=== PATIENT | male | born 1960 | race African-American/Black ===

== ENCOUNTER 2017-04-05 07:07 | Emergency (ER) | payer MEDICAID ==
[~2017-04-05] VITALS: Ht 175.3 cm; Wt 85.0 kg
[~2017-04-05 07:07] MED LIST: ARIP30TA4 PO; HYDR-3307 PO; SERT100T5 PO; TRAZ50TA18 PO
[2017-04-05 07:10] VITALS: BP 145/96
[2017-04-05] MEDS ORDERED: FLUORESCEIN OPHTHALMIC 1 MG STRIP ONE (07:53)
[2017-04-05] MEDS ORDERED: PROPARACAINE OPHTH 0.5%, 15ML ONE (07:53)
== END 2017-04-05 09:52 | disposition home or self-care (01) ==
LOC: ED 07:33
DX: H57.12 Ocular pain, left eye (principal); H27.112 Subluxation of lens, left eye; F17.210 Nicotine dependence, cigarettes, uncomplicated
CPT/HCPCS: 70480; 70486; 99284

== ENCOUNTER 2017-04-16 22:47 | Emergency (ER) | payer MEDICAID ==
[~2017-04-16] VITALS: Ht 175.3 cm; Wt 82.5 kg
[2017-04-16] MEDS ORDERED: methylPREDNISolone SOD SUCC 125 MG/2 ML ONE (23:21)
[2017-04-16] MEDS ORDERED: methylPREDNISolone SOD SUCC 125 MG/2 ML IVP ONE (23:30)
[2017-04-16] MEDS ORDERED: SODIUM CHLORIDE 0.9% 1,000ML IVBOLUS ONE (23:30)
[2017-04-16] MEDS ORDERED: SODIUM CHLORIDE FLUSH 10ML SYR IVF ONE (23:30)
[2017-04-16 23:37] LABS: BASOPHILS # (AUTO) 0.04 x10^3/uL (0-0.1); BASOPHILS % (AUTO) 1 % (0-1); EOSINOPHILS # (AUTO) 0.35 x10^3/uL (0-0.4); EOSINOPHILS % (AUTO) 5 % (1-7); LYMPHOCYTES # (AUTO) 2.28 x10^3/uL (1-3.4); LYMPHOCYTES % (AUTO) 31 % (22-44); MD NO; MEAN CORPUSCULAR HEMOGLOBIN 30.6 pg (27.5-34.5); MEAN CORPUSCULAR HGB CONC 33.8 g/dL (33.2-36.2); MEAN CORPUSCULAR VOLUME 90.7 fL (81-97); MEAN PLATELET VOLUME 8.3 fL (7.4-10.4); MONOCYTES # (AUTO) 0.78 x10^3/uL (0.2-0.8); MONOCYTES % (AUTO) 11 % (2-9); NEUTROPHILS # (AUTO) 3.94 x10^3/uL (1.8-6.8); NEUTROPHILS % (AUTO) 53 % (42-75); PLATELET COUNT 212 x10^3/uL (130-400); RED BLOOD COUNT 4.44 x10^6/uL (4.38-5.82)
[2017-04-16 23:50] LABS: ALBUMIN 2.9 g/dL (3.4-5.0); ANION GAP 8 mmol/L (5-15); CALCIUM 8.6 mg/dL (8.5-10.1); CHLORIDE 106 mmol/L (98-107); CREATININE 1.02 mg/dL (0.7-1.3)
[2017-04-17 00:46] VITALS: BP 147/78
== END 2017-04-17 00:50 | disposition home or self-care (01) ==
LOC: ED 23:07
DX: J20.9 Acute bronchitis, unspecified (principal); J44.0 Chronic obstructive pulmonary disease with (acute) lower respiratory infection; Z98.890 Other specified postprocedural states
CPT/HCPCS: 36415; 71046; 80048; 82040; 85025; 93005; 96361; 96374; 99285; J2930; J7030

== ENCOUNTER → 2017-11-21 | Outpatient (CLI) | payer MEDICAID ==
[~2017-11-21] MED LIST changes: +TRAZ-136 PO; -TRAZ50TA18 PO
== END | disposition home or self-care (01) ==
LOC: CFH 15:40
PROVIDERS: ATTEND Physical Medicine & Rehabilitation Pain Medicine
DX: M47.897 Other spondylosis, lumbosacral region (principal); M48.07 Spinal stenosis, lumbosacral region; M79.605 Pain in left leg; M79.604 Pain in right leg
CPT/HCPCS: 72148

== ENCOUNTER 2018-06-24 07:15 | Emergency (ER) | payer MEDICAID ==
[~2018-06-24] VITALS: Ht 175.3 cm; Wt 90.5 kg
[~2018-06-24 07:15] MED LIST changes: +SERT100T32 PO; -SERT100T5 PO; -TRAZ-136 PO; +TRAZ50TA66 PO
[2018-06-24 07:16] VITALS: BP 143/86
--- NOTE | 2018-06-24 07:54 | NUR ---
REVIEWED STUDENT CLINICAL AND PHYSICAL ASSESSMENT
--- NOTE | 2018-06-24 08:10 | NUR ---
PT CAME INTO ED STATING "I JUST WANT TO MAKE SURE I DON'T HAVE PNEUMONIA AGAIN LAST TIME I HAD IT I WAS IN THE HOSPITAL FOR 21 DAYS. I HAVE HAD A COUGH FOR A COUPLE WEEKS BUT MY CHEST STARTED TO HURT TWO DAYS AGO" DIVERSIFIED CROPS II FARMWORKER, PULSE OX AND NIBP IN USE.
--- NOTE | 2018-06-24 08:36 | NUR ---
Patient/Caregiver given discharge instructions and they have confirmed that they understand the instructions. Patient ambulatory with steady gait.
== END 2018-06-24 08:55 | disposition home or self-care (01) ==
LOC: ED 08:37
DX: J20.8 Acute bronchitis due to other specified organisms (principal); F17.200 Nicotine dependence, unspecified, uncomplicated; I10 Essential (primary) hypertension
CPT/HCPCS: 71046; 93005; 99283

== ENCOUNTER 2018-08-12 06:48 | Emergency (ER) | payer MEDICAID ==
[~2018-08-12] VITALS: Ht 175.3 cm; Wt 86.0 kg
--- NOTE | 2018-08-12 06:50 | NUR ---
CALLED FOR TRIAGE, PT TO BR.
[2018-08-12 07:05] VITALS: BP 134/85
--- NOTE | 2018-08-12 07:09 | NUR ---
PT RESTING COMFORTABLE ACCOMPANIED BY . PT HAS CO OF CHEST ON LEFT SIDE THAT RADIATES FROM THE BACK TO CHEST THAT HAS BEEN GOING ON FOR 2 WEEKS. PA AT BEDSIDE
[2018-08-12] MEDS ORDERED: GABA300C10 PO (07:14)
[2018-08-12] MEDS ORDERED: TAMS-11 PO (07:14)
[2018-08-12] MEDS ORDERED: AMLO10TA8 PO (07:14)
[2018-08-12] MEDS ORDERED: ASPIRIN 81 MG TABLET EC ONE (07:28)
[2018-08-12] MEDS ORDERED: METHOCARBAMOL 750 MG TABLET ONE ×2 (07:29→07:37)
[2018-08-12] MEDS ORDERED: IBUPROFEN 200 MG TABLET ONE ×2 (07:29→07:37)
[2018-08-12] MEDS ORDERED: ASPIRIN 81 MG TABLET CHEW PO ONE (07:30)
[2018-08-12] MEDS: METHOCARBAMOL 750 MG TABLET PO ONE ×2 (07:30→07:38)
[2018-08-12] MEDS: IBUPROFEN 200 MG TABLET PO ONE ×2 (07:31→07:38)
[2018-08-12] MEDS ORDERED: ASPIRIN 81 MG TABLET CHEW ONE (07:32)
[2018-08-12 07:35] LABS: BASOPHILS # (AUTO) 0.04 x10^3/uL (0-0.1); BASOPHILS % (AUTO) 1 % (0-1); EOSINOPHILS # (AUTO) 0.22 x10^3/uL (0-0.4); EOSINOPHILS % (AUTO) 6 % (1-7); LYMPHOCYTES # (AUTO) 1.99 x10^3/uL (1-3.4); LYMPHOCYTES % (AUTO) 49 % (22-44); MD NO; MEAN CORPUSCULAR HEMOGLOBIN 31.3 pg (27.5-34.5); MEAN CORPUSCULAR HGB CONC 33.2 g/dL (33.2-36.2); MEAN CORPUSCULAR VOLUME 94.3 fL (81-97); MEAN PLATELET VOLUME 8.6 fL (7.4-10.4); MONOCYTES # (AUTO) 0.35 x10^3/uL (0.2-0.8); MONOCYTES % (AUTO) 9 % (2-9); NEUTROPHILS # (AUTO) 1.45 x10^3/uL (1.8-6.8); NEUTROPHILS % (AUTO) 36 % (42-75); PLATELET COUNT 190 x10^3/uL (130-400); RED BLOOD COUNT 5.05 x10^6/uL (4.38-5.82); RED CELL DISTRIBUTION WIDTH 14.3 % (9.4-14.8)
[2018-08-12 08:24] LABS: ALBUMIN 3.5 g/dL (3.4-5.0); ANION GAP 6 mmol/L (5-15); CALCIUM 9.1 mg/dL (8.5-10.1); CHLORIDE 107 mmol/L (98-107); CREATININE 1.31 mg/dL (0.7-1.3)
[2018-08-12 08:28] LABS: TROPONIN I < 0.015 ng/mL (0.000-0.045)
--- NOTE | 2018-08-12 09:00 | NUR ---
PT DC HOME W INSTRUCTIONS AND ALL BELONGINGS.
== END 2018-08-12 09:31 | disposition home or self-care (01) ==
LOC: ED 09:12
DX: R07.89 Other chest pain (principal); I10 Essential (primary) hypertension
CPT/HCPCS: 36415; 71046; 80048; 82040; 83880; 84484; 85025; 93005; 99284

== ENCOUNTER 2019-12-31 17:39 | Emergency (ER) | payer MEDICAID ==
[~2019-12-31] VITALS: Ht 175.3 cm; Wt 89.0 kg
[~2019-12-31 17:39] MED LIST changes: +AMLO-211 PO; +GABA300C10 PO; +HYDR-3246 PO; -HYDR-3307 PO; +TAMS-11 PO
[2019-12-31 17:50] VITALS: BP 125/88
--- NOTE | 2019-12-31 19:30 | NUR ---
NIL X 1
--- NOTE | 2019-12-31 19:39 | NUR ---
NIL X 2
--- NOTE | 2019-12-31 19:58 | NUR ---
NIL X 3
== END 2019-12-31 20:00 | disposition left against medical advice (07) ==
LOC: ED 19:45
DX: R21 Rash and other nonspecific skin eruption (principal); L53.9 Erythematous condition, unspecified
CPT/HCPCS: 99281

== ENCOUNTER 2020-01-01 04:42 | Emergency (ER) | payer MEDICAID ==
[~2020-01-01] VITALS: Ht 175.3 cm; Wt 88.5 kg
[2020-01-01 04:47] VITALS: BP 129/91
--- NOTE | 2020-01-01 05:04 | NUR ---
PT STATES HAVING LESIONS ALL OVER BODY ON LET NEE, RIGHT SHOULDER AND BACK. PT STATES HAVING KNEE REPLACEENT IN LEFT KNEE WELL. PT PLACED IN GOWN AND IN GURNEY, AWAITING ERP EVAL.
[2020-01-01] MEDS ORDERED: PERMETHRIN CRM 5%, 60GM ONE (05:50)
--- NOTE | 2020-01-01 05:52 | NUR ---
PT GIVEN ELIMITE CREAM, PT IS PUTTING IT ON RIGHT NOW AND IS UNDERSTANDING TO WASH IT OFF AFTER 12 HOURS. PT UNDERSTANDING OF D/C INSTRUCTIONS, PT STEADY AMBULATING
[2020-01-01] MEDS ORDERED: PERMETHRIN CRM 5%, 60GM TP ONE (06:00)
== END 2020-01-01 06:04 | disposition home or self-care (01) ==
LOC: ED 05:37
DX: T14.8XXA Other injury of unspecified body region, initial encounter (principal); R21 Rash and other nonspecific skin eruption; I10 Essential (primary) hypertension; W57.XXXA Bitten or stung by nonvenomous insect and other nonvenomous arthropods, initial encounter; Y93.89 Activity, other specified; Y92.89 Other specified places as the place of occurrence of the external cause; Y99.8 Other external cause status
CPT/HCPCS: 99283

== ENCOUNTER 2020-02-17 23:26 | Emergency (ER) | payer MEDICAID ==
[~2020-02-17] VITALS: Ht 175.3 cm; Wt 86.0 kg
[2020-02-17 23:29] VITALS: BP 170/107
[2020-02-18] MEDS ORDERED: AMLODIPINE 5 MG TABLET PO ONE
[2020-02-18] MEDS ORDERED: DEXAMETHASONE 4 MG TABLET PO ONE
[2020-02-18] MEDS ORDERED: hydrOXyzine 50MG TABLET PO ONE
[2020-02-18] MEDS ORDERED: hydrOXyzine 50MG TABLET ONE (00:06)
[2020-02-18] MEDS ORDERED: DEXAMETHASONE 4 MG TABLET ONE (00:06)
[2020-02-18] MEDS ORDERED: AMLODIPINE 5 MG TABLET ONE (00:07)
== END 2020-02-18 00:15 | disposition home or self-care (01) ==
LOC: ED 23:44
DX: S20.369A Insect bite (nonvenomous) of unspecified front wall of thorax, initial encounter (principal); L29.9 Pruritus, unspecified; I10 Essential (primary) hypertension; F17.200 Nicotine dependence, unspecified, uncomplicated; X58.XXXA Exposure to other specified factors, initial encounter; Y93.89 Activity, other specified; Y92.89 Other specified places as the place of occurrence of the external cause; Y99.8 Other external cause status
CPT/HCPCS: 99284; Q0177

== ENCOUNTER 2020-03-15 19:34 | Emergency (ER) | payer MEDICAID ==
[~2020-03-15] VITALS: Ht 182.9 cm; Wt 89.0 kg
[~2020-03-15 19:34] MED LIST changes: -HYDR-3246 PO; +HYDR-3248 PO
--- NOTE | 2020-03-15 19:35 | NUR ---
PT BIB AMBULANCE TONIGHT AFTER BEING FOUND PASSED OUT AT [facility]. PT WAS REPORTEDLY DRINKING ETOH OF UNKNOWN TYPE AND AMOUNT. WITNESSES CALLED 911 WHEN CONCERNED THAT THE PT WAS "UNCONSCIOUS". UPON ARRIVAL TO [facility] ED, PT IS DROWSY BUT AROUSES TO PAIN AND CONVERSES WITH INCOMPREHENSIBLE SOUNDS. PT ATTACHED TO ALL VS MONITORS. VSS AT THIS TIME. PIV ACCESS ESTABLISHED BY EMS AND IV FLUIDS RUNNING AT THIS TIME. PT HAS CALL LIGHT WITHIN REACH. AWAITING ERP AT THIS TIME.
--- NOTE | 2020-03-15 21:51 | NUR ---
Report received from KENNY Marti. This RN to assume care. Patient sleeping in [facility]. Respirations even and unlabored.
--- NOTE | 2020-03-15 23:00 | NUR ---
Patient sleeping in gurney. Respirations even and unlabored.
--- NOTE | 2020-03-16 00:40 | NUR ---
Patient sleeping in gurney. Respirations even and unlabored.
--- NOTE | 2020-03-16 01:10 | NUR ---
PATIENT RESTING IN BED, NO NOTED ACUTE DISTRESS. PATIENT TOLERATING INTERVENTIONS WELL. VITAL SIGNS STABLE. WILL CONTINUE TO MONITOR.
[2020-03-16 02:16] VITALS: BP 137/96
--- NOTE | 2020-03-16 02:17 | NUR ---
PATIENT CLEARED FOR DISCHARGE. NO NOTED ACUTE DISTRESS. PATIENT TOLERATED INTERVENTIONS WELL. PATIENT VERBALIZED UNDERSTANDING OF SELF CARE AND FOLLOW UP CARE. PATIENT GIVEN TAXI VOUCHER. ABLE TO AMBULATE WITHOUT COMPLICATIONS TO DISCHARGE, PATIENT ABLE TO ANSWER ORIENTATION QUESTIONS, ABLE TO DO SERIAL ADDITION.
== END 2020-03-16 02:18 | disposition home or self-care (01) ==
LOC: ED 03-16 01:53 → EDBD 03-16 01:53 → MERGE 03-16 01:53 → ED 03-16 02:18
DX: F10.220 Alcohol dependence with intoxication, uncomplicated (principal); I10 Essential (primary) hypertension; F17.210 Nicotine dependence, cigarettes, uncomplicated; Z72.9 Problem related to lifestyle, unspecified; Y90.9 Presence of alcohol in blood, level not specified
CPT/HCPCS: 99283; 99406

== ENCOUNTER 2020-03-23 08:45 | Emergency (ER) | payer MEDICAID ==
[~2020-03-23] VITALS: Ht 175.3 cm; Wt 77.1 kg
--- NOTE | 2020-03-23 08:59 | NUR ---
TASK RN: PT BIB [facility] FROM [facility] TODAY FOR MULTIPLE JOINT PAIN AND SOME SWELLING TO RT HAND AND RT FOOT. PT DENIES TRAUMA. GRADUALLY WORSENING PAIN OVER SEVERAL DAYS. NAD NOTED AT THIS TIME. PT TENDER WITH MOVEMENT OF ARMS AND KNEES. NO WOB NOTED. PT REPORTS CHRONIC COUGH WITH TOBACCO USE. VSS. SIDE RAIL UP, CALL LIGHT IN REACH.
--- NOTE | 2020-03-23 09:40 | NUR ---
TASK RN NOTE: ERMD IN WITH MEDICAL STUDENT TO EVALUATE PT.
[2020-03-23] MEDS ORDERED: KETOROLAC 30 MG/1 ML IM ONE (10:00)
[2020-03-23] MEDS ORDERED: KETOROLAC 30 MG/1 ML ONE (10:05)
--- NOTE | 2020-03-23 10:17 | NUR ---
Pt medicated for discomfort in joints. Lab at bedside for draw. VS updated. Call light within reach. Updated on POC.
[2020-03-23 10:20] LABS: BASOPHILS % (AUTO) 1 % (0-1); EOSINOPHILS % (AUTO) 2 % (1-7); LYMPHOCYTES % (AUTO) 18 % (22-44); MEAN CORPUSCULAR HEMOGLOBIN 31.9 pg (27.5-34.5); MEAN CORPUSCULAR HGB CONC 34.6 g/dL (33.2-36.2); MEAN PLATELET VOLUME 8.5 fL (7.4-10.4); MONOCYTES % (AUTO) 10 % (2-9); NEUTROPHILS % (AUTO) 71 % (42-75); PLATELET COUNT 149 x10^3/uL (130-400); RED BLOOD COUNT 3.83 x10^6/uL (4.38-5.82); RED CELL DISTRIBUTION WIDTH 14.9 % (9.4-14.8)
[2020-03-23 10:25] LABS: ALANINE AMINOTRANSFERASE 44 U/L (12-78); ALBUMIN 2.5 g/dL (3.4-5.0); ANION GAP 6 mmol/L (5-15); CALCIUM 8.6 mg/dL (8.5-10.1); CHLORIDE 104 mmol/L (98-107); CREATININE 1.06 mg/dL (0.7-1.3)
[2020-03-23 10:27] LABS: ALKALINE PHOSPHATASE 90 U/L (45-117); TOTAL PROTEIN 7.3 g/dL (6.4-8.2)
[2020-03-23 10:33] LABS: MD NO
--- NOTE | 2020-03-23 11:05 | NUR ---
Report from KENNY Slater. [facility] care.
--- NOTE | 2020-03-23 11:23 | NUR ---
RN at bedside. Pt denies needs at this time.
--- NOTE | 2020-03-23 11:24 | NUR ---
Pt reports they feel like the Toradol helped "a little with the pain, and made the swelling go down"
--- NOTE | 2020-03-23 12:22 | NUR ---
UA was collected earlier and sent to lab by [facility]. Calling lab to ask if they have it and where the results are, lab reports they do not have a UA. This RN collected and sent new UA to lab.
[2020-03-23 12:40] LABS: MICROSCOPIC INDICATED
[2020-03-23 13:13] VITALS: BP 138/91
--- NOTE | 2020-03-23 13:45 | NUR ---
Provided pt taxi voucher. Pt agrees with and understands discharge plan and instructions.
== END 2020-03-23 13:46 | disposition home or self-care (01) ==
LOC: ED 09:02
DX: M13.0 Polyarthritis, unspecified (principal); R35.0 Frequency of micturition; I11.9 Hypertensive heart disease without heart failure; I49.3 Ventricular premature depolarization; F17.200 Nicotine dependence, unspecified, uncomplicated
CPT/HCPCS: 36415; 80053; 81001; 84550; 85025; 87086; 87491; 87591; 93005; 96372; 99284; J1885

== ENCOUNTER 2020-03-31 07:55 | Emergency (ER) | payer MEDICAID ==
[~2020-03-31] VITALS: Ht 175.3 cm; Wt 80.0 kg
[2020-03-31 07:56] VITALS: BP 115/80
--- NOTE | 2020-03-31 07:56 | NUR ---
PT BIBA FROM HOME. C/O RIGHT SIDED PAIN IN LE & UE. PT STATED WAS SEEN LAST WEEK FOR HX OF GOUT & SCIATICA. GIVEN 500MG TYLENOL & 600MG IBPROFEN IS MANAGER. PT CHANGED INTO GOWN, RESPONDS APPROPRIATLEY TO STAFF. MONITORS IN PLACE. NAD/VSS. CALL LIGHT WITHIN REACH. NO NEEDS AT THIS TIME.
[2020-03-31] MEDS ORDERED: KETOROLAC 30 MG/1 ML ONE (08:26)
[2020-03-31] MEDS ORDERED: OXYcodone/APAP 5/325MG TABLET ONE (08:27)
[2020-03-31] MEDS ORDERED: KETOROLAC 30 MG/1 ML IM ONE (08:30)
[2020-03-31] MEDS ORDERED: OXYcodone/APAP 5/325MG TABLET PO ONE (08:30)
--- NOTE | 2020-03-31 09:24 | NUR ---
PT CALMLY LAYING ON GURNEY, NO COMPLAINTS OF PAIN, RESPONDS APPROPRIATLEY TO STAFF. MONITORS IN PLACE. CALL LIGHT WITHIN REACH. NO NEEDS AT THIS TIME.
--- NOTE | 2020-03-31 09:34 | NUR ---
Patient given discharge instructions and they have confirmed that they understand the instructions. Patient TO DC DESK VIA WHEELCHAIR BECUSE PT REFUSED TO AMBULATE. ERP AWARE.
== END 2020-03-31 09:36 | disposition home or self-care (01) ==
LOC: ED 08:01
DX: M10.071 Idiopathic gout, right ankle and foot (principal); M10.061 Idiopathic gout, right knee; M10.031 Idiopathic gout, right wrist; M10.011 Idiopathic gout, right shoulder; I10 Essential (primary) hypertension
CPT/HCPCS: 96372; 99283; J1885

== ENCOUNTER 2020-08-24 09:59 | Emergency (ER) | payer MEDICAID ==
[~2020-08-24] VITALS: Ht 175.3 cm; Wt 82.0 kg
--- NOTE | 2020-08-24 10:02 | NUR ---
Report received from EMS and care assumed. Pt states dizziness has resolved. geoscience laboratory technician getting 12 lead now and pt placed on bedside monitor. Call light in reach.
--- NOTE | 2020-08-24 10:05 | NUR ---
assessment nurse practitioner completed.
[2020-08-24 10:15] VITALS: BP 139/104
--- NOTE | 2020-08-24 10:15 | NUR ---
PA at bedside for exam.
[2020-08-24] MEDS ORDERED: FLUORESCEIN OPHTHALMIC 1 MG STRIP ONE (10:40)
--- NOTE | 2020-08-24 12:21 | NUR ---
ASSUMED CARE OF PT FROM KENNY NOLASCO. PT RESTING IN YUSEF VIEYRA AT THIS TIME, KANIKA.
--- NOTE | 2020-08-24 12:23 | NUR ---
Report given to KENNY Guy and care transferred. RN aware pt has not had hourly rounding and is awaiting call back from opthamology.
[2020-08-24] MEDS ORDERED: CIPROFLOXACIN 500 MG TABLET PO ONE (13:00)
[2020-08-24] MEDS ORDERED: MOXIFLOXACIN OPHTH O.5%, 3ML LEFTEYE ONE (13:01)
--- NOTE | 2020-08-24 13:27 | NUR ---
PT EDUCATED ON IMPORTANCE OF STAYING FOR MEDICATION ADMINISTRATION, PT STATES "I AM LEAVING, I DON'T CARE I WILL PICK THEM UP FROM THE EYE DOCTOR TOMORROW". PT REFUSING TO SIGN AMA PAPERWORK. DR. SOLORIO AWARE. PT AMBULATED STEADILY OUT OF LOBBY.
== END 2020-08-24 13:30 | disposition left against medical advice (07) ==
LOC: ED 10:21
DX: H16.042 Marginal corneal ulcer, left eye (principal); H57.12 Ocular pain, left eye; H40.9 Unspecified glaucoma; R42 Dizziness and giddiness; I10 Essential (primary) hypertension
CPT/HCPCS: 93005; 99283

== ENCOUNTER 2020-08-30 12:49 | Inpatient (IN) | payer MEDICAID ==
[~2020-08-30] VITALS: Ht 175.3 cm; Wt 75.2 kg
[2020-08-30] MEDS ORDERED: FLUORESCEIN OPHTHALMIC 1 MG STRIP ONE (12:54)
[2020-08-30] MEDS ORDERED: PROPARACAINE OPHTH 0.5%, 15ML ONE (12:54)
--- NOTE | 2020-08-30 12:59 | NUR ---
PT CAME IN LEFT EYE REDNESS SWELLING AND PAIN X 1 WEEK. PT STATES HE CANNOT SEE OUT OF HIS LEFT EYE. HX OF GLAUCOMA AND DETATCHED RETNA
[2020-08-30] MEDS ORDERED: SODIUM CHLORIDE FLUSH 10ML SYR IVF PRN (14:00)
[2020-08-30] MEDS ORDERED: SODIUM CHLORIDE FLUSH 10ML SYR IVF ONE (14:00)
[2020-08-30] MEDS ORDERED: CIPROFLOXACIN 500 MG TABLET PO ONE (14:00)
[2020-08-30 14:09] LABS: BASOPHILS % (AUTO) 1 % (0-1); EOSINOPHILS % (AUTO) 1 % (1-7); LYMPHOCYTES % (AUTO) 37 % (22-44); MEAN CORPUSCULAR HEMOGLOBIN 32.9 pg (27.5-34.5); MEAN CORPUSCULAR HGB CONC 35.2 g/dL (33.2-36.2); MEAN PLATELET VOLUME 8.4 fL (7.4-10.4); MONOCYTES % (AUTO) 8 % (2-9); NEUTROPHILS % (AUTO) 53 % (42-75); PLATELET COUNT 207 x10^3/uL (130-400); RED BLOOD COUNT 4.36 x10^6/uL (4.38-5.82); RED CELL DISTRIBUTION WIDTH 14.3 % (9.4-14.8)
[2020-08-30 14:20] LABS: ALANINE AMINOTRANSFERASE 122 U/L (12-78); ALBUMIN 3.4 g/dL (3.4-5.0); ANION GAP 9 mmol/L (5-15); CHLORIDE 101 mmol/L (98-107); CREATININE 0.99 mg/dL (0.7-1.3)
[2020-08-30 14:23] LABS: ALKALINE PHOSPHATASE 92 U/L (45-117); BILIRUBIN,TOTAL 1.4 mg/dL (0.2-1.0); TOTAL PROTEIN 9.2 g/dL (6.4-8.2)
--- NOTE | 2020-08-30 14:28 | NUR ---
VERBAL SBAR WAS EXCHANGED W DAVINA WALTERS) O THE FLOOR FOR ADMISSION. WE WILL BEGIN TO PREPARE FOR TRANSPORT AT THIS TIME.
[2020-08-30] MEDS ORDERED: CIPROFLOXACIN 500 MG TABLET ONE (14:30)
[2020-08-30] MEDS ORDERED: BISACODYL 10 MG SUPP PR PRN (14:30)
[2020-08-30] MEDS ORDERED: POLYETHYLENE GLYCOL 17 GM PACKET PO PRN (14:30)
[2020-08-30] MEDS ORDERED: LABETALOL 5MG/ML, 20ML IVPush PRN (14:30)
[2020-08-30] MEDS ORDERED: ONDANSETRON 2MG/ML, 2ML IVPush PRN (14:30)
[2020-08-30] MEDS: MOXIFLOXACIN OPHTH O.5%, 3ML LEFTEYE SCH ×20 (14:36→23:38)
[2020-08-30] MEDS ORDERED: SODIUM CHLORIDE 0.9% 1,000 ML IV SCH (15:00)
[2020-08-30] MEDS ORDERED: KETOROLAC 30 MG/1 ML ONE ×2 (15:11→21:37)
[2020-08-30] MEDS: KETOROLAC 15 MG/1ML IVPush SCH ×2 (15:15→20:30)
[2020-08-30] MEDS: GABAPENTIN 100 MG CAPSULE PO SCH ×2 (15:15→21:50)
[2020-08-30] MEDS: ENOXAPARIN 40 MG/0.4 ML SQ SCH (15:15)
[2020-08-30] MEDS ORDERED: NICOTINE 14MG/24 HR PATCH.TD24 TD ONE (15:30)
[2020-08-30 21:41] VITALS: BP 162/89
[2020-08-30] MEDS: TIMOLOL OPHTH 0.25%, 5ML OP SCH (21:50)
[2020-08-30] MEDS: CIPROFLOXACIN 500 MG TABLET PO SCH (21:50)
[2020-08-30] MEDS: DORZOLAMIDE OPHTH 2%, 10ML RIGHTEYE SCH (21:50)
[2020-08-30] MEDS ORDERED: LORazepam 2 MG/ML, 1ML IVPush PRN (23:00)
[2020-08-30] MEDS ORDERED: CHLORDIAZEPOXIDE 5 MG CAPSULE PO PRN (23:00)
[2020-08-30] MEDS ORDERED: CHLORDIAZEPOXIDE 25 MG CAPSULE PO PRN (23:00)
[2020-08-30] MEDS: THIAMINE 100MG TABLET PO SCH (23:12)
[2020-08-31] MEDS: MOXIFLOXACIN OPHTH O.5%, 3ML LEFTEYE SCH ×34 (00:13→21:15)
[2020-08-31 01:37] VITALS: BP 150/87
[2020-08-31] MEDS ORDERED: KETOROLAC 30 MG/1 ML ONE ×4 (02:28→21:15)
[2020-08-31] MEDS: KETOROLAC 15 MG/1ML IVPush SCH ×4 (02:29→20:30)
[2020-08-31 05:05] LABS: BASOPHILS % (AUTO) 0 % (0-1); EOSINOPHILS % (AUTO) 1 % (1-7); LYMPHOCYTES % (AUTO) 39 % (22-44); MEAN CORPUSCULAR HEMOGLOBIN 32.7 pg (27.5-34.5); MEAN CORPUSCULAR HGB CONC 34.8 g/dL (33.2-36.2); MONOCYTES % (AUTO) 8 % (2-9); NEUTROPHILS % (AUTO) 52 % (42-75); PLATELET COUNT 155 x10^3/uL (130-400); RED BLOOD COUNT 4.12 x10^6/uL (4.38-5.82); RED CELL DISTRIBUTION WIDTH 13.8 % (9.4-14.8)
[2020-08-31 05:09] LABS: CHLORIDE 101 mmol/L (98-107)
[2020-08-31 05:18] LABS: ALANINE AMINOTRANSFERASE 106 U/L (12-78); ALBUMIN 2.8 g/dL (3.4-5.0); ALKALINE PHOSPHATASE 101 U/L (45-117); ANION GAP 6 mmol/L (5-15); BILIRUBIN,TOTAL 1.6 mg/dL (0.2-1.0); CALCIUM 8.7 mg/dL (8.5-10.1); CREATININE 0.89 mg/dL (0.7-1.3); TOTAL PROTEIN 7.8 g/dL (6.4-8.2)
[2020-08-31 06:45] VITALS: BP 157/97
[2020-08-31] MEDS: FOLIC ACID 1 MG TABLET PO SCH (08:00)
[2020-08-31] MEDS: CIPROFLOXACIN 500 MG TABLET PO SCH ×2 (08:00→21:21)
[2020-08-31] MEDS: HYDROcodone/APAP 5/325 TABLET PO PRN ×3 (08:00→20:33)
[2020-08-31] MEDS: GABAPENTIN 100 MG CAPSULE PO SCH ×3 (08:01→21:21)
[2020-08-31] MEDS: AMLODIPINE 10 MG TAB PO SCH (08:01)
[2020-08-31] MEDS: THIAMINE 100MG TABLET PO SCH ×2 (08:01→21:21)
[2020-08-31] MEDS: SENNA/DOCUSATE TABLET PO SCH (08:01)
[2020-08-31] MEDS: MULTIVITAMINS/MINERALS TABLET PO SCH (08:01)
[2020-08-31] MEDS: TIMOLOL OPHTH 0.25%, 5ML OP SCH ×2 (08:05→21:22)
[2020-08-31] MEDS: DORZOLAMIDE OPHTH 2%, 10ML RIGHTEYE SCH ×2 (10:02→21:22)
[2020-08-31] MEDS: ENOXAPARIN 40 MG/0.4 ML SQ SCH (14:54)
[2020-08-31 15:23] VITALS: BP 143/92
[2020-08-31 19:53] VITALS: BP 127/90
[2020-09-01 01:30] VITALS: BP 130/85
[2020-09-01] MEDS ORDERED: KETOROLAC 30 MG/1 ML ONE (02:26)
[2020-09-01] MEDS: KETOROLAC 15 MG/1ML IVPush SCH (02:29)
[2020-09-01 07:04] VITALS: BP 148/98
[2020-09-01] MEDS: MULTIVITAMINS/MINERALS TABLET PO SCH (08:02)
[2020-09-01] MEDS: THIAMINE 100MG TABLET PO SCH ×2 (08:02→21:08)
[2020-09-01] MEDS: GABAPENTIN 100 MG CAPSULE PO SCH ×3 (08:02→21:08)
[2020-09-01] MEDS: SENNA/DOCUSATE TABLET PO SCH (08:02)
[2020-09-01] MEDS: DORZOLAMIDE OPHTH 2%, 10ML RIGHTEYE SCH ×2 (08:02→21:09)
[2020-09-01] MEDS: TIMOLOL OPHTH 0.25%, 5ML OP SCH ×2 (08:02→21:09)
[2020-09-01] MEDS: AMLODIPINE 10 MG TAB PO SCH (08:02)
[2020-09-01] MEDS: CIPROFLOXACIN 500 MG TABLET PO SCH ×2 (08:02→21:08)
[2020-09-01] MEDS: FOLIC ACID 1 MG TABLET PO SCH (08:02)
[2020-09-01 09:25] LABS: ALANINE AMINOTRANSFERASE 121 U/L (12-78); ALBUMIN 2.8 g/dL (3.4-5.0); ANION GAP 7 mmol/L (5-15); CALCIUM 9.1 mg/dL (8.5-10.1); CHLORIDE 113 mmol/L (98-107); CREATININE 0.99 mg/dL (0.7-1.3)
[2020-09-01 09:27] LABS: ALKALINE PHOSPHATASE 92 U/L (45-117); BILIRUBIN,TOTAL 1.5 mg/dL (0.2-1.0); TOTAL PROTEIN 7.8 g/dL (6.4-8.2)
[2020-09-01] MEDS: KETOROLAC 30 MG/1 ML IVPush SCH ×3 (10:23→22:13)
[2020-09-01 13:26] VITALS: BP 110/73
[2020-09-01] MEDS: ENOXAPARIN 40 MG/0.4 ML SQ SCH (16:08)
[2020-09-01] MEDS: MOXIFLOXACIN OPHTH O.5%, 3ML LEFTEYE SCH ×3 (18:00→22:00)
[2020-09-01 19:07] VITALS: BP 143/86
[2020-09-01] MEDS ORDERED: OXYcodone IR 5MG TABLET PO PRN (20:30)
[2020-09-01] MEDS: AMPICILLIN/SULBACTAM 3 GM in SODIUM CHLORIDE 0.9% 100 ML IV SCH (21:08)
[2020-09-01] MEDS: TOBRAMYCIN OPHTH OINT 3.5 GM LEFTEYE SCH (22:13)
[2020-09-02 00:55] VITALS: BP 134/88
[2020-09-02] MEDS: AMPICILLIN/SULBACTAM 3 GM in SODIUM CHLORIDE 0.9% 100 ML IV SCH ×4 (02:56→20:56)
[2020-09-02] MEDS: KETOROLAC 30 MG/1 ML IVPush SCH ×4 (03:54→22:14)
[2020-09-02 04:49] LABS: BASOPHILS % (AUTO) 1 % (0-1); EOSINOPHILS % (AUTO) 5 % (1-7); LYMPHOCYTES % (AUTO) 31 % (22-44); MEAN CORPUSCULAR HGB CONC 34.8 g/dL (33.2-36.2); MEAN PLATELET VOLUME 8.8 fL (7.4-10.4); MONOCYTES % (AUTO) 9 % (2-9); NEUTROPHILS % (AUTO) 55 % (42-75); PLATELET COUNT 138 x10^3/uL (130-400); RED BLOOD COUNT 4.42 x10^6/uL (4.38-5.82); RED CELL DISTRIBUTION WIDTH 13.8 % (9.4-14.8)
[2020-09-02 05:00] LABS: CHLORIDE 102 mmol/L (98-107)
[2020-09-02 05:07] LABS: ALANINE AMINOTRANSFERASE 118 U/L (12-78); ALBUMIN 2.7 g/dL (3.4-5.0); ALKALINE PHOSPHATASE 97 U/L (45-117); ANION GAP 6 mmol/L (5-15); CALCIUM 8.8 mg/dL (8.5-10.1); CREATININE 1.02 mg/dL (0.7-1.3); TOTAL PROTEIN 7.5 g/dL (6.4-8.2)
[2020-09-02 06:45] VITALS: BP 145/87
[2020-09-02] MEDS: MOXIFLOXACIN OPHTH O.5%, 3ML LEFTEYE SCH ×8 (08:14→22:00)
[2020-09-02] MEDS: GABAPENTIN 100 MG CAPSULE PO SCH ×3 (08:16→20:56)
[2020-09-02] MEDS: THIAMINE 100MG TABLET PO SCH ×2 (08:16→20:56)
[2020-09-02] MEDS: MULTIVITAMINS/MINERALS TABLET PO SCH (08:16)
[2020-09-02] MEDS: SENNA/DOCUSATE TABLET PO SCH (08:16)
[2020-09-02] MEDS: CIPROFLOXACIN 500 MG TABLET PO SCH ×2 (08:16→20:57)
[2020-09-02] MEDS: FOLIC ACID 1 MG TABLET PO SCH (08:16)
[2020-09-02] MEDS: AMLODIPINE 10 MG TAB PO SCH (08:16)
[2020-09-02] MEDS: TIMOLOL OPHTH 0.25%, 5ML OP SCH ×2 (08:21→21:07)
[2020-09-02] MEDS: DORZOLAMIDE OPHTH 2%, 10ML RIGHTEYE SCH ×2 (08:21→21:01)
[2020-09-02] MEDS: NICOTINE 14MG/24 HR PATCH.TD24 TD SCH (10:41)
[2020-09-02 13:12] VITALS: BP_SYST 130; BP_SYST 157; BP_DIAS 69; BP_DIAS 84
[2020-09-02] MEDS: ENOXAPARIN 40 MG/0.4 ML SQ SCH (15:42)
[2020-09-02 19:04] VITALS: BP 129/84
[2020-09-02] MEDS: TOBRAMYCIN OPHTH OINT 3.5 GM LEFTEYE SCH (21:07)
[2020-09-03 01:08] VITALS: BP 159/95
[2020-09-03] MEDS: KETOROLAC 30 MG/1 ML IVPush SCH ×3 (03:19→16:45)
[2020-09-03] MEDS: AMPICILLIN/SULBACTAM 3 GM in SODIUM CHLORIDE 0.9% 100 ML IV SCH ×4 (03:19→20:44)
[2020-09-03 07:25] VITALS: BP 157/97
[2020-09-03] MEDS: MOXIFLOXACIN OPHTH O.5%, 3ML LEFTEYE SCH ×8 (07:58→21:41)
[2020-09-03] MEDS: DORZOLAMIDE OPHTH 2%, 10ML RIGHTEYE SCH ×2 (08:45→20:44)
[2020-09-03] MEDS: TIMOLOL OPHTH 0.25%, 5ML OP SCH ×2 (08:45→20:44)
[2020-09-03] MEDS: THIAMINE 100MG TABLET PO SCH ×2 (08:47→20:44)
[2020-09-03] MEDS: SENNA/DOCUSATE TABLET PO SCH (08:47)
[2020-09-03] MEDS: CIPROFLOXACIN 500 MG TABLET PO SCH ×2 (08:47→20:44)
[2020-09-03] MEDS: MULTIVITAMINS/MINERALS TABLET PO SCH (08:47)
[2020-09-03] MEDS: FOLIC ACID 1 MG TABLET PO SCH (08:47)
[2020-09-03] MEDS: GABAPENTIN 100 MG CAPSULE PO SCH ×3 (08:47→20:44)
[2020-09-03] MEDS: NICOTINE 14MG/24 HR PATCH.TD24 TD SCH (08:48)
[2020-09-03] MEDS: AMLODIPINE 10 MG TAB PO SCH (08:48)
[2020-09-03] MEDS: ENOXAPARIN 40 MG/0.4 ML SQ SCH (14:35)
[2020-09-03 16:49] VITALS: BP 143/90
[2020-09-03 19:00] VITALS: BP 130/83
[2020-09-03] MEDS: TOBRAMYCIN OPHTH OINT 3.5 GM LEFTEYE SCH (20:45)
[2020-09-04] MEDS ORDERED: OXYcodone IR 5MG TABLET PO PRN (00:30)
[2020-09-04 00:42] VITALS: BP 156/88
[2020-09-04] MEDS: MOXIFLOXACIN OPHTH O.5%, 3ML LEFTEYE SCH ×9 (00:44→20:00)
[2020-09-04] MEDS: AMPICILLIN/SULBACTAM 3 GM in SODIUM CHLORIDE 0.9% 100 ML IV SCH ×4 (03:06→22:23)
[2020-09-04 05:16] LABS: ANION GAP 4 mmol/L (5-15); CALCIUM 9.3 mg/dL (8.5-10.1); CHLORIDE 104 mmol/L (98-107)
[2020-09-04 07:09] VITALS: BP 151/89
[2020-09-04] MEDS: FOLIC ACID 1 MG TABLET PO SCH (08:14)
[2020-09-04] MEDS: SENNA/DOCUSATE TABLET PO SCH (08:14)
[2020-09-04] MEDS: CIPROFLOXACIN 500 MG TABLET PO SCH ×2 (08:15→21:22)
[2020-09-04] MEDS: MULTIVITAMINS/MINERALS TABLET PO SCH (08:15)
[2020-09-04] MEDS: AMLODIPINE 10 MG TAB PO SCH (08:15)
[2020-09-04] MEDS: THIAMINE 100MG TABLET PO SCH ×2 (08:15→21:23)
[2020-09-04] MEDS: GABAPENTIN 100 MG CAPSULE PO SCH ×3 (08:15→21:23)
[2020-09-04] MEDS: NICOTINE 14MG/24 HR PATCH.TD24 TD SCH (08:16)
[2020-09-04] MEDS: DORZOLAMIDE OPHTH 2%, 10ML RIGHTEYE SCH ×2 (08:16→21:22)
[2020-09-04] MEDS: TIMOLOL OPHTH 0.25%, 5ML OP SCH ×2 (08:18→21:23)
[2020-09-04] MEDS ORDERED: COVID-19 VAC,AD26(JANSSEN)/PF 0.5ML IM-VACC ONE (12:30)
[2020-09-04 12:59] VITALS: BP 124/75
[2020-09-04] MEDS: ENOXAPARIN 40 MG/0.4 ML SQ SCH (14:46)
[2020-09-04] MEDS: OXYcodone IR 5MG TABLET PO PRN ×2 (14:51→21:23)
[2020-09-04 18:29] VITALS: BP 124/79
[2020-09-04] MEDS ORDERED: MOXIFLOXACIN OPHTH O.5%, 3ML LEFTEYE SCH (21:00)
[2020-09-04] MEDS: TOBRAMYCIN OPHTH OINT 3.5 GM LEFTEYE SCH (21:24)
[2020-09-04] MEDS ORDERED: TOBRAMYCIN RIGHTEYE SCH (22:00)
[2020-09-04] MEDS: VANCOMYCIN RIGHTEYE SCH (23:02)
[2020-09-04] MEDS: TOBRAMYCIN RIGHTEYE SCH (23:51)
[2020-09-05 00:02] VITALS: BP 143/90
[2020-09-05] MEDS: VANCOMYCIN RIGHTEYE SCH (01:28)
[2020-09-05] MEDS: OXYcodone IR 5MG TABLET PO PRN ×4 (01:28→20:25)
[2020-09-05] MEDS: TOBRAMYCIN RIGHTEYE SCH ×6 (06:28→16:00)
[2020-09-05 07:09] VITALS: BP 166/91
[2020-09-05] MEDS ORDERED: TOBRAMYCIN RIGHTEYE SCH (08:00)
[2020-09-05] MEDS ORDERED: [UNRECOGNIZED DRUG - OTHER] RIGHTEYE SCH (09:00)
[2020-09-05] MEDS: TIMOLOL OPHTH 0.25%, 5ML OP SCH ×2 (09:05→21:37)
[2020-09-05] MEDS: DORZOLAMIDE OPHTH 2%, 10ML RIGHTEYE SCH ×2 (09:06→21:37)
[2020-09-05] MEDS: THIAMINE 100MG TABLET PO SCH ×2 (09:07→21:31)
[2020-09-05] MEDS: SENNA/DOCUSATE TABLET PO SCH (09:07)
[2020-09-05] MEDS: MULTIVITAMINS/MINERALS TABLET PO SCH (09:07)
[2020-09-05] MEDS: FOLIC ACID 1 MG TABLET PO SCH (09:07)
[2020-09-05] MEDS: AMLODIPINE 10 MG TAB PO SCH (09:07)
[2020-09-05] MEDS: GABAPENTIN 100 MG CAPSULE PO SCH ×3 (09:07→21:31)
[2020-09-05] MEDS: CIPROFLOXACIN 500 MG TABLET PO SCH ×2 (09:07→21:31)
[2020-09-05] MEDS: NICOTINE 14MG/24 HR PATCH.TD24 TD SCH (09:08)
[2020-09-05] MEDS: [UNRECOGNIZED DRUG - OTHER] RIGHTEYE SCH ×3 (11:01→15:00)
[2020-09-05 12:26] VITALS: BP 126/75
[2020-09-05] MEDS: ENOXAPARIN 40 MG/0.4 ML SQ SCH (14:09)
[2020-09-05] MEDS: [UNRECOGNIZED DRUG - OTHER] LEFTEYE SCH ×4 (16:50→23:08)
[2020-09-05] MEDS: TOBRAMYCIN LEFTEYE SCH ×3 (17:54→22:11)
[2020-09-05 19:01] VITALS: BP 135/86
[2020-09-06] MEDS: TOBRAMYCIN LEFTEYE SCH ×7 (00:08→12:04)
[2020-09-06] MEDS: OXYcodone IR 5MG TABLET PO PRN ×5 (00:09→22:20)
[2020-09-06 00:14] VITALS: BP 132/70
[2020-09-06] MEDS: [UNRECOGNIZED DRUG - OTHER] LEFTEYE SCH ×6 (01:00→10:56)
[2020-09-06 06:42] VITALS: BP 120/79
[2020-09-06] MEDS: CIPROFLOXACIN 500 MG TABLET PO SCH ×2 (09:03→21:25)
[2020-09-06] MEDS: FOLIC ACID 1 MG TABLET PO SCH (09:03)
[2020-09-06] MEDS: SENNA/DOCUSATE TABLET PO SCH (09:03)
[2020-09-06] MEDS: AMLODIPINE 10 MG TAB PO SCH (09:03)
[2020-09-06] MEDS: NICOTINE 14MG/24 HR PATCH.TD24 TD SCH (09:03)
[2020-09-06] MEDS: DORZOLAMIDE OPHTH 2%, 10ML RIGHTEYE SCH ×2 (09:04→21:25)
[2020-09-06] MEDS: GABAPENTIN 100 MG CAPSULE PO SCH ×3 (09:04→21:25)
[2020-09-06] MEDS: THIAMINE 100MG TABLET PO SCH ×2 (09:04→21:25)
[2020-09-06] MEDS: MULTIVITAMINS/MINERALS TABLET PO SCH (09:04)
[2020-09-06] MEDS: TIMOLOL OPHTH 0.25%, 5ML OP SCH ×2 (09:04→21:26)
[2020-09-06 13:03] VITALS: BP 136/81
[2020-09-06] MEDS: ENOXAPARIN 40 MG/0.4 ML SQ SCH (14:26)
[2020-09-06 19:21] VITALS: BP 114/80
[2020-09-07 01:01] VITALS: BP 148/92
[2020-09-07] MEDS: TOBRAMYCIN OP SCH (02:11)
[2020-09-07] MEDS: OXYcodone IR 5MG TABLET PO PRN ×5 (02:12→21:21)
[2020-09-07] MEDS: [UNRECOGNIZED DRUG - OTHER] HOMEOPHTH SCH (02:44)
[2020-09-07 07:07] VITALS: BP 149/91
[2020-09-07] MEDS: CIPROFLOXACIN 500 MG TABLET PO SCH ×2 (07:33→21:04)
[2020-09-07] MEDS: MULTIVITAMINS/MINERALS TABLET PO SCH (07:34)
[2020-09-07] MEDS: THIAMINE 100MG TABLET PO SCH ×2 (07:34→21:04)
[2020-09-07] MEDS: AMLODIPINE 10 MG TAB PO SCH (07:34)
[2020-09-07] MEDS: GABAPENTIN 100 MG CAPSULE PO SCH ×3 (07:34→21:04)
[2020-09-07] MEDS: FOLIC ACID 1 MG TABLET PO SCH (07:34)
[2020-09-07] MEDS: TIMOLOL OPHTH 0.25%, 5ML OP SCH ×2 (07:35→21:05)
[2020-09-07] MEDS: SENNA/DOCUSATE TABLET PO SCH (07:35)
[2020-09-07] MEDS: NICOTINE 14MG/24 HR PATCH.TD24 TD SCH (07:35)
[2020-09-07] MEDS: DORZOLAMIDE OPHTH 2%, 10ML RIGHTEYE SCH ×2 (07:36→21:06)
[2020-09-07 13:25] VITALS: BP 127/79
[2020-09-07] MEDS: ENOXAPARIN 40 MG/0.4 ML SQ SCH ×2 (14:30→15:51)
[2020-09-07 19:13] VITALS: BP 148/87
[2020-09-08] MEDS: OXYcodone IR 5MG TABLET PO PRN ×3 (01:58→19:32)
[2020-09-08] MEDS: TOBRAMYCIN OP SCH ×2 (02:00→09:00)
[2020-09-08 02:01] VITALS: BP 136/87
[2020-09-08] MEDS: [UNRECOGNIZED DRUG - OTHER] HOMEOPHTH SCH ×3 (02:05→09:00)
[2020-09-08 04:57] LABS: BASOPHILS % (AUTO) 1 % (0-1); EOSINOPHILS % (AUTO) 4 % (1-7); LYMPHOCYTES % (AUTO) 38 % (22-44); MEAN CORPUSCULAR HGB CONC 33.9 g/dL (33.2-36.2); MEAN PLATELET VOLUME 8.4 fL (7.4-10.4); MONOCYTES % (AUTO) 24 % (2-9); NEUTROPHILS % (AUTO) 33 % (42-75); PLATELET COUNT 199 x10^3/uL (130-400); RED BLOOD COUNT 3.78 x10^6/uL (4.38-5.82); RED CELL DISTRIBUTION WIDTH 13.7 % (9.4-14.8)
[2020-09-08 05:11] LABS: CALCIUM 9.1 mg/dL (8.5-10.1); CHLORIDE 103 mmol/L (98-107)
[2020-09-08 05:23] LABS: ANION GAP 4 mmol/L (5-15)
[2020-09-08 06:34] VITALS: BP 144/89
[2020-09-08] MEDS: THIAMINE 100MG TABLET PO SCH ×2 (08:54→21:23)
[2020-09-08] MEDS: SENNA/DOCUSATE TABLET PO SCH (08:54)
[2020-09-08] MEDS: NICOTINE 14MG/24 HR PATCH.TD24 TD SCH (08:54)
[2020-09-08] MEDS: AMLODIPINE 10 MG TAB PO SCH (08:55)
[2020-09-08] MEDS: GABAPENTIN 100 MG CAPSULE PO SCH ×3 (08:55→21:25)
[2020-09-08] MEDS: MULTIVITAMINS/MINERALS TABLET PO SCH (08:55)
[2020-09-08] MEDS: CIPROFLOXACIN 500 MG TABLET PO SCH ×2 (08:55→21:24)
[2020-09-08] MEDS: FOLIC ACID 1 MG TABLET PO SCH (08:55)
[2020-09-08] MEDS: TIMOLOL OPHTH 0.25%, 5ML OP SCH ×2 (08:56→21:39)
[2020-09-08] MEDS: DORZOLAMIDE OPHTH 2%, 10ML RIGHTEYE SCH ×2 (08:57→21:47)
[2020-09-08] MEDS ORDERED: DIPHENHYDRAMINE 25 MG CAPSULE PO ONE (09:00)
[2020-09-08 12:45] VITALS: BP 124/73
[2020-09-08] MEDS: ENOXAPARIN 40 MG/0.4 ML SQ SCH (13:40)
[2020-09-08 18:25] VITALS: BP 135/74
[2020-09-09 01:46] VITALS: BP 133/73
[2020-09-09] MEDS: GABAPENTIN 100 MG CAPSULE PO SCH ×3 (07:42→21:03)
[2020-09-09 07:45] VITALS: BP 156/111
[2020-09-09] MEDS: CIPROFLOXACIN 500 MG TABLET PO SCH (07:45)
[2020-09-09] MEDS: SENNA/DOCUSATE TABLET PO SCH (07:45)
[2020-09-09] MEDS: FOLIC ACID 1 MG TABLET PO SCH (07:46)
[2020-09-09] MEDS: MULTIVITAMINS/MINERALS TABLET PO SCH (07:46)
[2020-09-09] MEDS: THIAMINE 100MG TABLET PO SCH ×2 (07:47→21:03)
[2020-09-09] MEDS: AMLODIPINE 10 MG TAB PO SCH (07:47)
[2020-09-09] MEDS: [UNRECOGNIZED DRUG - OTHER] HOMEOPHTH SCH (09:00)
[2020-09-09] MEDS: TOBRAMYCIN OP SCH (09:00)
[2020-09-09] MEDS: DORZOLAMIDE OPHTH 2%, 10ML RIGHTEYE SCH ×2 (09:40→21:03)
[2020-09-09] MEDS: TIMOLOL OPHTH 0.25%, 5ML OP SCH ×2 (09:48→21:34)
[2020-09-09] MEDS: NICOTINE 14MG/24 HR PATCH.TD24 TD SCH (09:52)
[2020-09-09 13:24] VITALS: BP 120/70
[2020-09-09] MEDS: ENOXAPARIN 40 MG/0.4 ML SQ SCH (15:30)
[2020-09-09 18:44] VITALS: BP 125/77
[2020-09-09] MEDS: OXYcodone IR 5MG TABLET PO PRN (21:35)
[2020-09-10 02:15] VITALS: BP 135/76
[2020-09-10 07:59] VITALS: BP 142/91
[2020-09-10] MEDS: DORZOLAMIDE OPHTH 2%, 10ML RIGHTEYE SCH (08:44)
[2020-09-10] MEDS: MULTIVITAMINS/MINERALS TABLET PO SCH (08:45)
[2020-09-10] MEDS: AMLODIPINE 10 MG TAB PO SCH (08:45)
[2020-09-10] MEDS: TIMOLOL OPHTH 0.25%, 5ML OP SCH (08:45)
[2020-09-10] MEDS: FOLIC ACID 1 MG TABLET PO SCH (08:45)
[2020-09-10] MEDS: SENNA/DOCUSATE TABLET PO SCH (08:45)
[2020-09-10] MEDS: GABAPENTIN 100 MG CAPSULE PO SCH ×2 (08:46→14:52)
[2020-09-10] MEDS: THIAMINE 100MG TABLET PO SCH (08:46)
[2020-09-10] MEDS: NICOTINE 14MG/24 HR PATCH.TD24 TD SCH (08:46)
[2020-09-10 13:52] VITALS: BP 110/68
[2020-09-10] MEDS ORDERED: DORZ10DR26 RIGHTEYE (14:38)
[2020-09-10] MEDS ORDERED: [UNRECOGNIZED DRUG - OTHER] LEFTEYE ×2 (14:38→14:39)
[2020-09-10] MEDS ORDERED: TOBRAMYCIN LEFTEYE ×2 (14:38→14:39)
[2020-09-10] MEDS ORDERED: Timolol Ophth 0.25%, 5ML OP ×2 (14:38→14:39)
[2020-09-10] MEDS: ENOXAPARIN 40 MG/0.4 ML SQ SCH (14:51)
[2020-09-10] MEDS ORDERED: COVID-19 VAC,AD26(JANSSEN)/PF 0.5ML IM-VACC ONE (16:00)
== END 2020-09-10 17:33 | disposition left against medical advice (07) | DRG 121 ==
LOC: ED 14:00 → 4NW 14:32 → ED 14:47 → INTOOBSV 14:47 → OBSVTOIN 14:47 → 4NW 14:47
PROVIDERS: ADMIT Family Medicine; ATTEND Hospitalist
DX: H16.002 Unspecified corneal ulcer, left eye (principal); E87.0 Hyperosmolality and hypernatremia; E87.1 Hypo-osmolality and hyponatremia; K70.10 Alcoholic hepatitis without ascites; B19.20 Unspecified viral hepatitis C without hepatic coma; F17.210 Nicotine dependence, cigarettes, uncomplicated; G62.9 Polyneuropathy, unspecified; H40.9 Unspecified glaucoma; H54.62 Unqualified visual loss, left eye, normal vision right eye; I10 Essential (primary) hypertension; M10.9 Gout, unspecified; Z59.0 Homelessness; Z86.73 Personal history of transient ischemic attack (TIA), and cerebral infarction without residual deficits; Z96.652 Presence of left artificial knee joint; Z88.8 Allergy status to other drugs, medicaments and biological substances
CPT/HCPCS: 36415; 80048; 80053; 80074; 80320; 83036; 85025; 86704; 86706; 86708; 86790; 86803; 87340; 91303; 96372; 99285; G0378; J0295; J1650; J1885; G0480; J7030; Q0163

== ENCOUNTER 2020-09-19 12:03 | Emergency (ER) | payer MEDICAID ==
[~2020-09-19] VITALS: Ht 175.3 cm; Wt 72.7 kg
[~2020-09-19 12:03] MED LIST changes: +DORZ10DR26 RIGHTEYE; +TOBRAMYCIN LEFTEYE; +Timolol Ophth 0.25%, 5ML OP; +[UNRECOGNIZED DRUG - OTHER] LEFTEYE
[2020-09-19] MEDS ORDERED: PROPARACAINE OPHTH 0.5%, 15ML ONE (13:08)
[2020-09-19] MEDS ORDERED: FLUORESCEIN OPHTHALMIC 1 MG STRIP ONE (13:08)
--- NOTE | 2020-09-19 13:12 | NUR ---
PT TO ROOM 20 W/ C/O L EYE PAIN AND REDNESS. PT STATES HE WAS SEEN HERE RECENTLY FOR SAME. STATES HE HAS HIS EYE DROPS THAT WERE PRESCRIBED TO HIM BUT HAS NOT BEEN USING THEM. PT ADMITS TO NONCOMPLIANCE W/ EYE DROPS. PT +ETOH TODAY. PT RESTING IN EYE CHAIR. NADN. MONITORS APPLIED. VSS.
[2020-09-19 13:58] VITALS: BP 115/77
--- NOTE | 2020-09-19 13:59 | NUR ---
PT RESTING IN EYE CHAIR. NADN. CARLSON.
== END 2020-09-19 12:37 | disposition home or self-care (01) ==
LOC: EDUNIT# 12:03 → EDBD 12:03 → ED 12:31
DX: H16.012 Central corneal ulcer, left eye (principal); I10 Essential (primary) hypertension; Z86.73 Personal history of transient ischemic attack (TIA), and cerebral infarction without residual deficits
CPT/HCPCS: 99283

== ENCOUNTER 2020-11-16 10:47 | Emergency (ER) | payer MEDICAID ==
[~2020-11-16] VITALS: Ht 175.3 cm; Wt 80.0 kg
[2020-11-16] MEDS ORDERED: KETOROLAC 30 MG/1 ML IVPush ONE (11:00)
[2020-11-16] MEDS ORDERED: ASPIRIN 81 MG TABLET CHEW PO ONE (11:00)
[2020-11-16] MEDS ORDERED: KETOROLAC 30 MG/1 ML ONE (11:12)
[2020-11-16] MEDS ORDERED: ASPIRIN 81 MG TABLET CHEW ONE (11:12)
[2020-11-16 11:23] LABS: BASOPHILS % (AUTO) 0 % (0-1); EOSINOPHILS % (AUTO) 0 % (1-7); LYMPHOCYTES % (AUTO) 13 % (22-44); MEAN CORPUSCULAR HEMOGLOBIN 32.9 pg (27.5-34.5); MEAN CORPUSCULAR HGB CONC 34.6 g/dL (33.2-36.2); MEAN PLATELET VOLUME 8.7 fL (7.4-10.4); MONOCYTES % (AUTO) 8 % (2-9); NEUTROPHILS % (AUTO) 78 % (42-75); PLATELET COUNT 116 x10^3/uL (130-400); RED BLOOD COUNT 4.17 x10^6/uL (4.38-5.82); RED CELL DISTRIBUTION WIDTH 14.4 % (9.4-14.8)
[2020-11-16 11:31] LABS: ALANINE AMINOTRANSFERASE 96 U/L (12-78); ANION GAP 9 mmol/L (5-15); CALCIUM 8.1 mg/dL (8.5-10.1); CHLORIDE 100 mmol/L (98-107); CREATININE 1.06 mg/dL (0.7-1.3)
[2020-11-16 11:35] LABS: ALKALINE PHOSPHATASE 70 U/L (45-117); BILIRUBIN,TOTAL 1.1 mg/dL (0.2-1.0); TOTAL PROTEIN 8.3 g/dL (6.4-8.2); TROPONIN I < 0.015 ng/mL (0.000-0.045)
--- NOTE | 2020-11-16 12:55 | NUR ---
task rn note: pt gone to ct
[2020-11-16 13:21] VITALS: BP 134/89
--- NOTE | 2020-11-16 13:22 | NUR ---
PT BACK FROM CT. PT RESTING COMFORTABLY ON GURNEY. RESP EVEN AND UNLABORED. CALL LIGHT IN REACH.
--- NOTE | 2020-11-16 13:25 | NUR ---
ALL RESULTS ARE BACK AT THIS TIME. CHART UP FOR RECHECK.
--- NOTE | 2020-11-16 13:47 | NUR ---
PT AMBULATED TO RESTROOM WITH STEADY GAIT.
[2020-11-16] MEDS ORDERED: OMNIPAQUE 350 MG/ML, 75ML BOTTLE ONE (14:49)
== END 2020-11-16 15:00 | disposition home or self-care (01) ==
LOC: ED 11:17
DX: R07.89 Other chest pain (principal); Z76.0 Encounter for issue of repeat prescription; F17.200 Nicotine dependence, unspecified, uncomplicated; M19.90 Unspecified osteoarthritis, unspecified site; I10 Essential (primary) hypertension
CPT/HCPCS: 36415; 71045; 71275; 80053; 83880; 84484; 85025; 85379; 93005; 96374; 99285; J1885; Q9967